=== PATIENT | female | born 2000 | race Hispanic/Latino ===

== ENCOUNTER 2022-10-30 10:17 | Outpatient (CLI) | payer OTHER | END 2022-10-30 10:18 | disposition home or self-care (01) | LOC: SCSRAD 10:17 | PROVIDERS: ATTEND Family Medicine Sports Medicine | DX: M25.562 Pain in left knee (principal) ==

== ENCOUNTER 2022-11-03 13:54 | Outpatient (CLI) | payer OTHER | END 2022-11-03 13:55 | disposition home or self-care (01) | LOC: TBSIIMAG 13:54 | PROVIDERS: ATTEND Family Medicine Sports Medicine | DX: M25.562 Pain in left knee (principal); S83.512D Sprain of anterior cruciate ligament of left knee, subsequent encounter ==